=== PATIENT | male | born 1965 | race Caucasian/White ===

== ENCOUNTER 2019-08-02 09:51 | Day surgery (SDC) | payer OTHER ==
[~2019-08-02 09:51] MED LIST: Lactated Ringers 1,000 ML IV SCH; Lidocaine 2% 5 ML SDV ONE; Propofol 200 MG/20 ML SDV ONE
--- NOTE | 2019-08-02 10:47 | PCM.PREANE ---
Preanesthetic Assessment - Anesthesia/Transfusion/Family Hx Anesthesia History: No Prior Anesthesia Family History of Anesthesia Reaction: No Transfusion History: Prior Transfusion Without Reaction - Review of Systems General: Fatigue Pulmonary: No Symptoms Cardiovascular: No Symptoms Gastrointestinal: No Symptoms Neurological: Pre-Existing Deficit Other: Reports: None - Physical Assessment NPO Status Date: 08/01/19 Vital Signs: Last Vital Signs Temp 98.1 F 08/02/19 10:12 Pulse 67 08/02/19 10:12 Resp 14 08/02/19 10:12 BP 137/82 08/02/19 10:12 Pulse Ox 97 08/02/19 10:12 Height: 5 ft 9 in Weight: 104.326 kg ASA Class: 2 Mental Status: Alert & Oriented x3 Airway Class: Mallampati = 2 Dentition: Reports: Normal Dentition (implant maxillary central incisor) ROM/Head Extension: Full Lungs: Clear to Auscultation, Normal Respiratory Effort Cardiovascular: Regular Rate, Regular Rhythm - Allergies Allergies/Adverse Reactions: Allergies Allergy/AdvReac Type Severity Reaction Status Date / Time No Known Allergies Allergy Verified 07/29/19 12:51 - Blood Blood Available: No - Anesthesia Plan Pre-Op Medication Ordered: None - Acknowledgements Anesthesia Type Planned: General Anesthesia Pt an Appropriate Candidate for the Planned Anesthesia: Yes Alternatives and Risks of Anesthesia Discussed w Pt/Guardian: Yes Pt/Guardian Understands and Agrees with Anesthesia Plan: Yes Additional Comments: PMH: april uses CPAP all night, every night, hypersomnulence thought to be due to his MS, not pickwickian syndrome PLAN: tiva PreAnesthesia Questionnaire HEENT History: Reports: Other (See Below) Other HEENT History: wears glasses, permanent top partial Cardiovascular History: Reports: None Respiratory History: Reports: Sleep Apnea Other Respiratory History: uses CPAP Gastrointestinal History: Reports: None Genitourinary History: Reports: None Musculoskeletal History: Reports: Other (See Below) Other Musculoskeletal History: rt foot drop, wears brace Neurological History: Reports: MS Psychiatric History: Reports: None Endocrine/Metabolic History: Reports: None Hematologic History: Reports: Blood Transfusion(s) Other Hematologic History: 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 Immunologic History: Reports: None Oncologic (Cancer) History: Reports: None Dermatologic History: Reports: None - Past Surgical History Head Surgeries/Procedures: Reports: None HEENT Surgical History: Reports: Tonsillectomy Cardiovascular Surgical History: Reports: None Respiratory Surgical History: Reports: None GI Surgical History: Reports: None Male Surgical History: Reports: None Endocrine Surgical History: Reports: None Neurological Surgical History: Reports: None Musculoskeletal Surgical History: Reports: None Oncologic Surgical History: Reports: None Dermatological Surgical History: Reports: None - SUBSTANCE USE Smoking Status *Q: Never Smoker Recreational Drug Use History: No - HOME MEDS Home Medications: Home Meds Dalfampridine [Dalfampridine ER] 10 mg PO BID 07/29/19 [History] Dimethyl Fumarate [Tecfidera] 1 tab PO BID 07/29/19 [History] Sertraline HCl 2 tab PO DAILY 07/29/19 [History] - CURRENT (IN HOUSE) MEDS Current Meds: Current Medications Lactated Ringer's (Ringers, Lactated) 1,000 mls @ 125 mls/hr IV ASDIRECTED JOSÉ MANUEL Last Admin: 08/02/19 10:34 Dose: 125 mls/hr Discontinued Medications Lidocaine (Xylocaine-Mpf 2%) Confirm Administered Dose 5 ml .ROUTE .STK-MED ONE Stop: 08/02/19 09:50 Propofol (Diprivan 20 Ml) Confirm Administered Dose 400 mg .ROUTE .STK-MED ONE Stop: 08/02/19 09:50
[2019-08-02] MEDS ORDERED: Propofol 200 MG/20 ML SDV ONE (12:15)
--- NOTE | 2019-08-02 12:38 | PCM.OPNOTE ---
- General Post-Op/Procedure Note Date of Surgery/Procedure: 08/02/19 Operative Procedure(s): Colonoscopy with cold ascending colon, transverse colon and rectal polypectomies Pre Op Diagnosis: Desire for colorectal cancer screening Post-Op Diagnosis: Ascending colon, transverse colon and rectal polyps. Anesthesia Technique: MAC (ASA III) Primary Surgeon: Jose Monae Scarifier Operator: Blanca Lemons Condition: Good Free Text/Narrative:: DICTATION [id number] CPT CODE 92568
[2019-08-02] MEDS ORDERED: Lactated Ringers 1,000 ML IV SCH (12:45)
--- NOTE | 2019-08-02 12:57 | PCM48HPAN ---
Post Anesthesia Note - EVALUATION WITHIN 48HRS OF ANESTHETIC Vital Signs in Normal Range: Yes Patient Participated in Evaluation: Yes Respiratory Function Stable: Yes Airway Patent: Yes Cardiovascular Function Stable: Yes Hydration Status Stable: Yes Pain Control Satisfactory: Yes Nausea and Vomiting Control Satisfactory: Yes Mental Status Recovered: Yes Vital Signs: Last Vital Signs Temp 98.1 F 08/02/19 10:12 Pulse 54 L 08/02/19 12:50 Resp 13 08/02/19 12:50 BP 114/78 08/02/19 12:50 Pulse Ox 94 L 08/02/19 12:50
--- NOTE | 2019-08-02 12:57 | PCM.POSTAN ---
POST ANESTHESIA ASSESSMENT - MENTAL STATUS Mental Status: Alert, Oriented - VITAL SIGNS Vital Signs: Last Vital Signs Temp 98.1 F 08/02/19 10:12 Pulse 54 L 08/02/19 12:50 Resp 13 08/02/19 12:50 BP 114/78 08/02/19 12:50 Pulse Ox 94 L 08/02/19 12:50 - RESPIRATORY Respiratory Status: Respiratory Rate WNL, Airway Patent, O2 Saturation Stable - CARDIOVASCULAR CV Status: Pulse Rate WNL, Blood Pressure Stable - GASTROINTESTINAL GI Status: No Symptoms - POST OP HYDRATION Hydration Status: Adequate & Stable
--- NOTE | 2019-08-02 13:01 | OR ---
SURGEON: Jose Monae M.D. DATE OF PROCEDURE: 08/02/2019 OPERATION PERFORMED: Colonoscopy with cold ascending colon, transverse colon, and rectal polypectomies. PRIMARY SURGEON: Jose Monae MD. PHILOSOPHY AND RELIGION INSTRUCTOR: culinary assistant: Dr. Lemons, PGY2. ANESTHESIA: MAC. ASA CLASSIFICATION: III. PREOPERATIVE DIAGNOSIS: Desire for colorectal cancer screening. POSTOPERATIVE DIAGNOSIS: Ascending colon, transverse colon, and rectal polyps. DESCRIPTION OF PROCEDURE: The patient was taken to the endoscopy room and positioned on the endoscopy table in the left lateral decubitus position. Time-out was called for appropriate identification of the patient and procedure. Monitored anesthesia care was provided. The colonoscope was inserted into the rectum and advanced with minimal difficulty to the cecum where the colonoscope was retroflexed to visualize the ascending colon from below. The colonoscope was then straightened and slowly withdrawn. One polyp was encountered in the ascending colon and removed with multiple bites of the cold biopsy forceps. Another polyp was encountered in the transverse colon and removed in a similar fashion. The remainder of the transverse colon, splenic flexure, descending colon, and sigmoid colon showed no tumors, polyps, diverticula, or angiodysplastic changes. Another polyp was encountered in the rectum and this was also removed with the cold biopsy forceps. Once the colonoscope was withdrawn to the distal rectum, it was retroflexed to visualize the anal orifice from above. Again, no tumors or polyps were seen. There were some minor chronic hemorrhoidal changes, but no acute lesions. The colonoscope was then straightened, the rectum aspirated, and the colonoscope removed. The patient tolerated the procedure well and was taken to recovery room in stable condition. SHELLY / ALPHONSO /[id number]
[2019-08-02 13:07] VITALS: BP 136/73; PULSE 57
== END 2019-08-02 13:16 | disposition home or self-care (01) ==
LOC: MW.SDS 09:51
PROVIDERS: ATTEND Surgery
DX: Z12.11 Encounter for screening for malignant neoplasm of colon (principal); D12.2 Benign neoplasm of ascending colon; K63.5 Polyp of colon; K62.1 Rectal polyp; G47.33 Obstructive sleep apnea (adult) (pediatric); Z99.89 Dependence on other enabling machines and devices
CPT/HCPCS: 45380; 88305; J2001; J2704; J7120; 00812

== ENCOUNTER 2019-09-23 07:57 | Day surgery (SDC) | payer OTHER ==
[~2019-09-23 07:57] MED LIST changes: -Lidocaine 2% 5 ML SDV ONE; -Propofol 200 MG/20 ML SDV ONE; +Sugammadex Sodium 200 MG/2 ML VIAL ONE; +ceFAZolin 2 GM in Premix Bag 1 BAG IV SCH
[2019-09-23] MEDS ORDERED: fentaNYL 250 MCG/5 ML SDV ONE (08:20)
[2019-09-23] MEDS ORDERED: Ondansetron 4 MG/2 ML SDV ONE (08:20)
[2019-09-23] MEDS ORDERED: Ketorolac 30 MG/ML SDV ONE (08:20)
[2019-09-23] MEDS ORDERED: Lidocaine 2% 5 ML SDV ONE (08:20)
[2019-09-23] MEDS ORDERED: Glycopyrrolate 0.2 MG/ML SDV ONE (08:20)
[2019-09-23] MEDS ORDERED: Propofol 200 MG/20 ML SDV ONE (08:20)
[2019-09-23] MEDS ORDERED: Midazolam 1 MG/ML 2 ML SDV ONE (08:20)
[2019-09-23] MEDS ORDERED: Rocuronium 100 MG/10 ML Syringe ONE (08:21)
[2019-09-23] MEDS ORDERED: Sugammadex Sodium 200 MG/2 ML VIAL ONE (08:21)
--- NOTE | 2019-09-23 08:49 | PCM.PREANE ---
Preanesthetic Assessment - Anesthesia/Transfusion/Family Hx Anesthesia History: Prior Anesthesia Without Reaction Family History of Anesthesia Reaction: No Transfusion History: Prior Transfusion Without Reaction - Review of Systems Pulmonary: Other (SAVANNAH uses [facility] every night) Neurological: Pre-Existing Deficit (hypersomnulence, MS, central pain syndrome) - Physical Assessment NPO Status Date: 09/22/19 Vital Signs: Last Vital Signs Temp 97.5 F 09/23/19 08:30 Pulse 55 L 09/23/19 08:30 Resp 16 09/23/19 08:30 BP 154/90 H 09/23/19 08:30 Pulse Ox 96 09/23/19 08:30 Height: 5 ft 9 in Weight: 107.501 kg ASA Class: 3 Mental Status: Alert & Oriented x3 Airway Class: Mallampati = 2 Dentition: Reports: Normal Dentition ROM/Head Extension: Full Lungs: Clear to Auscultation, Normal Respiratory Effort Cardiovascular: Regular Rate, Regular Rhythm - Allergies Allergies/Adverse Reactions: Allergies Allergy/AdvReac Type Severity Reaction Status Date / Time No Known Allergies Allergy Verified 09/19/19 08:47 - Blood Blood Available: No - Anesthesia Plan Pre-Op Medication Ordered: None - Acknowledgements Anesthesia Type Planned: General Anesthesia Pt an Appropriate Candidate for the Planned Anesthesia: Yes Alternatives and Risks of Anesthesia Discussed w Pt/Guardian: Yes Pt/Guardian Understands and Agrees with Anesthesia Plan: Yes Additional Comments: anes prob ist: SAVANNAH, neuro sx with cervical flexion, MS plan: GET, no warming blankets, no hyperflexion of neck PreAnesthesia Questionnaire HEENT History: Reports: Other (See Below) Other HEENT History: wears glasses, permanent top partial Cardiovascular History: Reports: None Respiratory History: Reports: Sleep Apnea Other Respiratory History: uses CPAP Gastrointestinal History: Reports: None Genitourinary History: Reports: None Musculoskeletal History: Reports: Other (See Below) Other Musculoskeletal History: rt foot drop, wears brace Neurological History: Reports: MS Psychiatric History: Reports: None Endocrine/Metabolic History: Reports: None Hematologic History: Reports: Blood Transfusion(s) Other Hematologic History: 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 Immunologic History: Reports: None Oncologic (Cancer) History: Reports: None Dermatologic History: Reports: None - Past Surgical History Head Surgeries/Procedures: Reports: None HEENT Surgical History: Reports: Tonsillectomy Cardiovascular Surgical History: Reports: None Respiratory Surgical History: Reports: None GI Surgical History: Reports: Colonoscopy Male Surgical History: Reports: None Endocrine Surgical History: Reports: None Neurological Surgical History: Reports: None Musculoskeletal Surgical History: Reports: None Oncologic Surgical History: Reports: None Dermatological Surgical History: Reports: None - SUBSTANCE USE Smoking Status *Q: Never Smoker Recreational Drug Use History: No - HOME MEDS Home Medications: Home Meds Dalfampridine [Dalfampridine ER] 10 mg PO BID 07/29/19 [History] Dimethyl Fumarate [Tecfidera] 240 mg PO BID 07/29/19 [History] Sertraline HCl 2 tab PO DAILY 07/29/19 [History] - CURRENT (IN HOUSE) MEDS Current Meds: Current Medications Cefazolin Sodium/Dextrose 2 gm (/ Premix) 50 mls @ 100 mls/hr IV ONETIME JOSÉ MANUEL Lactated Ringer's (Ringers, Lactated) 1,000 mls @ 125 mls/hr IV ASDIRECTED JOSÉ MANUEL Last Admin: 09/23/19 08:44 Dose: 125 mls/hr Discontinued Medications Fentanyl (Sublimaze) Confirm Administered Dose 250 mcg .ROUTE .STK-MED ONE Stop: 09/23/19 08:21 Glycopyrrolate (Robinul) Confirm Administered Dose 0.2 mg .ROUTE .STK-MED ONE Stop: 09/23/19 08:21 Ketorolac Tromethamine (Toradol) Confirm Administered Dose 30 mg .ROUTE .STK- MED ONE Stop: 09/23/19 08:21 Lidocaine (Xylocaine-Mpf 2%) Confirm Administered Dose 5 ml .ROUTE .STK-MED ONE Stop: 09/23/19 08:21 Midazolam HCl (Versed 1 Mg/Ml) Confirm Administered Dose 2 mg .ROUTE .STK-MED ONE Stop: 09/23/19 08:21 Ondansetron HCl (Zofran) Confirm Administered Dose 4 mg .ROUTE .STK-MED ONE Stop: 09/23/19 08:21 Propofol (Diprivan 20 Ml) Confirm Administered Dose 200 mg .ROUTE .STK-MED ONE Stop: 09/23/19 08:21 Rocuronium [place] (Zemuron) Confirm Administered Dose 100 mg .ROUTE .STK-MED ONE Stop: 09/23/19 08:22 Sugammadex Sodium (Bridion) Confirm Administered Dose 200 mg .ROUTE .STK-MED ONE Stop: 09/23/19 07:11 Sugammadex Sodium (Bridion) Confirm Administered Dose 200 mg .ROUTE .STK-MED ONE Stop: 09/23/19 08:22
[2019-09-23] MEDS ORDERED: Bupivacaine 0.5% 10 ML SDV ONE (09:10)
[2019-09-23] MEDS ORDERED: ceFAZolin 1 GM Vial ONE ×2 (09:10→09:55)
[2019-09-23] MEDS ORDERED: Sodium Chloride 0.9% 20 ML ONE (09:55)
[2019-09-23] MEDS ORDERED: Ondansetron 4 MG/2 ML SDV IVPUSH PRN (11:02)
[2019-09-23] MEDS ORDERED: Acetaminophen/HYDROcodone 325-5 MG Tab PO PRN (11:02)
[2019-09-23] MEDS ORDERED: Morphine 10 MG/ML Syringe IVPUSH PRN (11:02)
--- NOTE | 2019-09-23 11:05 | PCM.OPNOTE ---
- General Post-Op/Procedure Note Date of Surgery/Procedure: 09/23/19 Operative Procedure(s): Repair incarcerated ventral hernia with 4.3 cm Ventralex mesh Pre Op Diagnosis: Incarcerated ventral hernia Post-Op Diagnosis: Same Anesthesia Technique: General LMA (ASA III) Primary Surgeon: Jose Monae Creative Writing English Professor: Fannie Guthrie Fluid Replacement, Intraop: 700 EBL in mLs: 5 Condition: Good Free Text/Narrative:: DICTATION 333327 CPT CODE 90949/[id number]
[2019-09-23] MEDS ORDERED: Lactated Ringers 1,000 ML IV SCH (11:15)
--- NOTE | 2019-09-23 13:21 | PCM48HPAN ---
Post Anesthesia Note - EVALUATION WITHIN 48HRS OF ANESTHETIC Vital Signs in Normal Range: Yes Patient Participated in Evaluation: Yes Respiratory Function Stable: Yes Airway Patent: Yes Cardiovascular Function Stable: Yes Hydration Status Stable: Yes Pain Control Satisfactory: Yes Nausea and Vomiting Control Satisfactory: Yes Mental Status Recovered: Yes Vital Signs: Last Vital Signs Temp 98.1 F 09/23/19 10:59 Pulse 72 09/23/19 11:40 Resp 13 09/23/19 11:40 BP 123/83 09/23/19 11:40 Pulse Ox 95 09/23/19 11:40
--- NOTE | 2019-09-23 13:21 | PCM.POSTAN ---
POST ANESTHESIA ASSESSMENT - MENTAL STATUS Mental Status: Alert, Oriented - VITAL SIGNS Vital Signs: Last Vital Signs Temp 98.1 F 09/23/19 10:59 Pulse 72 09/23/19 11:40 Resp 13 09/23/19 11:40 BP 123/83 09/23/19 11:40 Pulse Ox 95 09/23/19 11:40 - RESPIRATORY Respiratory Status: Respiratory Rate WNL, Airway Patent, O2 Saturation Stable - CARDIOVASCULAR CV Status: Pulse Rate WNL, Blood Pressure Stable - GASTROINTESTINAL GI Status: No Symptoms - POST OP HYDRATION Hydration Status: Adequate & Stable
[2019-09-23 13:58] VITALS: BP 132/83; PULSE 62
--- NOTE | 2019-09-23 14:10 | OR ---
SURGEON: Jose Monae M.D. DATE OF PROCEDURE: 09/23/2019 OPERATION PERFORMED: Repair of incarcerated ventral hernia with 4.3 cm Ventralex mesh. PRIMARY SURGEON: Jose Monae MD. AUTOMOBILE PARKER: payroll assistant: DEE Greco, records management assistant student. ANESTHESIA: General LMA ASA CLASSIFICATION: III. PREOPERATIVE DIAGNOSIS: Incarcerated ventral hernia. POSTOPERATIVE DIAGNOSIS: Incarcerated ventral hernia. ESTIMATED BLOOD LOSS: 5 mL. INTRAOPERATIVE FLUID REPLACEMENT: 700 mL of crystalloid. DESCRIPTION OF PROCEDURE: The patient was taken to the operating room, placed on the operating table in the supine position. Time-out was called for appropriate identification of the patient and procedure. Thigh-high TEDs and sequential compression boots were placed. The surgical site had been marked prior to the patient entering the operating room. Following satisfactory attainment of general anesthesia with placement of an LMA, the abdomen was prepped with DuraPrep solution. Sterile drapes were applied. Skin above the umbilicus was infiltrated with 0.5% Marcaine solution. A skin incision was made and deepened through the subcutaneous tissue, dissecting down to the hernia sac. This was circumferentially dissected free and reduced. The defect was large enough that it was appropriate to put in a mesh. A 4.3 cm Ventralex mesh was brought to the operating table. This was soaked in 1% Ancef solution. This was then placed in an underlay technique and secured to the surrounding fascia with interrupted horizontal mattress 0 Ethibond sutures. All sutures were placed under direct vision and held with hemostats until all sutures had been placed. The sutures were all secured, and the patient given a Valsalva maneuver to 35 cm. The repair was solid. The wound was inspected for hemostasis and small bleeding sites were electrocoagulated. The fascia was then reapproximated over the mesh with interrupted 0 Ethibond sutures. The wound was again inspected for hemostasis and no bleeding was noted. The subcutaneous tissue was reapproximated with interrupted 3-0 Vicryl. The skin was then closed with subcuticular 4-0 Monocryl, reinforced with half-inch Steri-Strips. The wound was then dressed with a sterile Tegaderm pad. Sponge, needle, and instrument counts were all correct. Following emergence from anesthesia and extubation, the patient was taken to recovery room in stable condition. SHELLY / ALPHONSO /[id number]
== END 2019-09-23 13:30 | disposition home or self-care (01) ==
LOC: MW.SDS 07:57
PROVIDERS: ATTEND Surgery
DX: K43.6 Other and unspecified ventral hernia with obstruction, without gangrene (principal); G35 Multiple sclerosis; G47.33 Obstructive sleep apnea (adult) (pediatric); Z99.89 Dependence on other enabling machines and devices; Z86.010 Personal history of colon polyps
CPT/HCPCS: 49561; 49568; J0690; J1885; J2001; J2250; J2405; J2704; J3010; J3490; J7120